=== PATIENT | female | born 1950 ===

== ENCOUNTER 2016-08-20 07:04 | Day surgery (SDC) | payer MEDICARE, OTHER ==
[2016-08-20 07:48] VITALS: BMI 24.7
[2016-08-20] MEDS ORDERED: Propofol 10 mg/ml Inj (20 ML) ONE (10:05)
[2016-08-20] MEDS ORDERED: Lidocaine Hydrochloride 5 ML INJ ONE (10:05)
[2016-08-20] MEDS ORDERED: Atropine Sulfate 0.4 mg/ml (0.8mg/2ml) Syringe IV ONE (10:13)
[2016-08-20] MEDS ORDERED: Lactated Ringer's 500 ML IV SCH (10:15)
[2016-08-20 10:39] VITALS: O2SAT 100
[2016-08-20 11:34] VITALS: BP 116/59; PULSE 76; RESP 16; TEMP 97
== END 2016-08-20 11:20 | disposition home or self-care (01) ==
LOC: C.ENDO 07:04
PROVIDERS: ATTEND Internal Medicine Gastroenterology
DX: D12.2 Benign neoplasm of ascending colon (principal); K64.8 Other hemorrhoids
CPT/HCPCS: 45378; 88305; J2704; J7120

== ENCOUNTER 2017-03-03 07:16 | Day surgery (SDC) | payer MEDICARE, OTHER ==
[2017-03-03 07:54] VITALS: BMI 24.5
[2017-03-03 08:23] VITALS: TEMP 97; O2SAT 100
[2017-03-03] MEDS ORDERED: Lactated Ringer's 1,000 ML IV ONE (09:15)
[2017-03-03] MEDS ORDERED: Propofol 10 mg/ml Inj (20 ML) ONE ×2 (09:18→09:40)
[2017-03-03] MEDS ORDERED: Lidocaine Hydrochloride 5 ML INJ ONE (09:18)
[2017-03-03 14:00] VITALS: RESP 15
[2017-03-03 14:10] VITALS: BP 132/78; PULSE 66
== END 2017-03-03 11:30 | disposition home or self-care (01) ==
LOC: C.ENDO 07:16
PROVIDERS: ATTEND Internal Medicine Gastroenterology
DX: K31.7 Polyp of stomach and duodenum (principal); K29.60 Other gastritis without bleeding; K44.9 Diaphragmatic hernia without obstruction or gangrene
CPT/HCPCS: 43270; 88305; 88342; J2704; J7120

== ENCOUNTER 2017-09-15 12:28 | Emergency (ER) | payer MEDICARE, OTHER ==
[2017-09-15 12:28] VITALS: BMI 24.5
[2017-09-15 12:45] VITALS: BP 141/84; PULSE 72; RESP 18; TEMP 98.1; O2SAT 97
[2017-09-15] MEDS ORDERED: Lidocaine 5% Patch TD STA (13:05)
--- NOTE | 2017-09-15 13:06 | C.PDOC ---
History Of Present Illness 67 y/o female with history of chronic back pain presents to ED with c/o low back pain worse on left side for 1 week. Patient has taken tylenol with no relief and denies dysuria, hematuria, bowel/bladder incontinence, vomiting or diarrhea. Time Seen by Provider: 09/15/17 12:42 Chief Complaint (Nursing): Back Pain History Per: Patient History/Exam Limitations: no limitations Onset/Duration Of Symptoms: Days Current Symptoms Are (Timing): Still Present Quality Of Discomfort: "Pain" Past Medical History Reviewed: Historical Data, Nursing Documentation, Vital Signs Vital Signs: Last Vital Signs Temp 98.1 F 09/15/17 12:39 Pulse 72 09/15/17 12:39 Resp 18 09/15/17 12:39 BP 141/84 09/15/17 12:39 Pulse Ox 97 09/15/17 15:10 - Medical History PMH: Colonic Polyps (ADENOMATOUS), HTN Surgical History: No Surg Hx Family History: States: No Known Family Hx - Social History Hx Alcohol Use: No Hx Substance Use: No - Immunization History Hx Tetanus Toxoid Vaccination: No Hx Influenza Vaccination: No Hx Pneumococcal Vaccination: No Review Of Systems Constitutional: Negative for: Fever, Chills Gastrointestinal: Negative for: Nausea, Vomiting, Abdominal Pain Genitourinary: Negative for: Dysuria, Hematuria Musculoskeletal: Positive for: Back Pain Neurological: Negative for: Weakness, Numbness Physical Exam - Physical Exam Appears: Non-toxic, No Acute Distress Skin: Warm, Dry, No Rash Head: Atraumatic, Normacephalic Eye(s): bilateral: Normal Inspection Oral Mucosa: Moist Neck: Normal ROM, Supple Cardiovascular: Rhythm Regular Respiratory: Normal Breath Sounds, No Rales, No Rhonchi, No Wheezing Gastrointestinal/Abdominal: Soft, No Tenderness, No Guarding, No Rebound Back: Normal Inspection (no rash), No CVA Tenderness, No Vertebral Tenderness, Other (paralumbar tenderness) Extremity: Bilateral: Atraumatic, Normal Color And Temperature, Normal ROM Neurological/Psych: Oriented x3, Normal Speech, Normal Motor, Normal Sensation ED Course And Treatment O2 Sat by Pulse Oximetry: 97 (RA) Pulse Ox Interpretation: Normal Medical Decision Making Medical Decision Making: Impression: Back pain Plan: * Toradol * Lidoderm patch * UA Reassess UA was negative. On reassessment, patient is resting comfortably, with improvement of back pain. Patient remains afebrile, with no bony tenderness, extremity numbness or weakness, or abdominal pain. Patient is ambulatory in the emergency department with no signs of discomfort. Patient was advised to follow up with physician/ clinic in 1-2 days. Disposition Counseled Patient/Family Regarding: Diagnosis, Need For Followup, Rx Given - Disposition Referrals: Shaik Roman MD [Staff Provider] - Disposition: HOME/ ROUTINE Disposition Time: 14:22 Condition: GOOD Additional Instructions: Vaya a [place] mdico o la clnica en 2-5 younger sin falta, para mas evaluacin. [place] los medicamentos abdelrahman indicado. Volver a la christine de emergencia en cualquier momento si los sntomas persisten o empeoran. 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 - Scribe Statement The provider has reviewed the documentation as recorded by the Jeffry Rubio All medical record entries made by the Kirbyibpj were at my direction and personally dictated by me. I have reviewed the chart and agree that the record accurately reflects my personal performance of the history, physical exam, medical decision making, and the department course for this patient. I have also personally directed, reviewed, and agree with the discharge instructions and disposition.
[2017-09-15] MEDS ORDERED: Lidocaine 5% Patch TD ONE (13:11)
[2017-09-15 13:24] LABS: SQUAMOUS EPITHIAL < 1 /hpf (0-5); URINE BILIRUBIN NEGATIVE (NEGATIVE); URINE BLOOD NEGATIVE (NEGATIVE); URINE CLARITY Clear (Clear); URINE COLOR Yellow (YELLOW); URINE GLUCOSE (UA) NORMAL (Normal); URINE LEUKOCYTE ESTERASE NEG Leu/uL (Negative); URINE PROTEIN NEGATIVE (NEGATIVE)
--- NOTE | 2017-09-17 12:29 | CARD ---
APPROVED REPORT Date of service: 09/15/2017 EKG Measurement Heart [id number] <Conclusion> Sinus bradycardia Possible Left atrial enlargement Borderline ECG
== END 2017-09-15 14:30 | disposition home or self-care (01) ==
LOC: C.ER 12:28
DX: M54.5 Low back pain (principal)
CPT/HCPCS: 81001; 93005; 96372; 99283; J1885

== ENCOUNTER 2017-10-16 13:38 | Emergency (ER) | payer MEDICARE, OTHER ==
[2017-10-16 13:41] VITALS: BMI 22.8
[2017-10-16 13:44] VITALS: TEMP 98
[2017-10-16] MEDS ORDERED: Lidocaine 5% Patch TD STA (14:03)
--- NOTE | 2017-10-16 14:08 | C.PDOC ---
History Of Present Illness Pt is a 67 yr old female who is c/o low back pain for 4 or 5 months. Patient went to her PMD on Wednesday for a re-evaluation of her back pain and he reviewed xrays that were taken recently and told the patient that she has arthritis. The pt states that she received a prescription for Trazodone. Pt also states that she has intermittent suprapubic pain and dysuria (and sometimes with odor in her urine). No fever. No additional complaints at this time. PMD: Dr. Roberson / Time Seen by Provider: 10/16/17 13:46 Chief Complaint (Nursing): Back Pain History Per: Patient Past Medical History Reviewed: Historical Data, Nursing Documentation, Vital Signs Vital Signs: Last Vital Signs Temp 98 F 10/16/17 13:41 Pulse 78 10/16/17 14:41 Resp 16 10/16/17 14:41 BP 129/81 10/16/17 14:41 Pulse Ox 98 10/16/17 14:41 - Medical History PMH: Colonic Polyps (ADENOMATOUS), HTN Other PMH: Back pain Family History: States: No Known Family Hx - Social History Hx Tobacco Use: No Hx Alcohol Use: No Hx Substance Use: No - Immunization History Hx Tetanus Toxoid Vaccination: No Hx Influenza Vaccination: No Hx Pneumococcal Vaccination: No Review Of Systems Except As Marked, All Systems Reviewed And Found Negative. Constitutional: Negative for: Fever Cardiovascular: Negative for: Chest Pain Respiratory: Negative for: Shortness of Breath Genitourinary: Positive for: Dysuria, Other (suprapubic pain) Musculoskeletal: Positive for: Back Pain Physical Exam - Physical Exam Appears: Well, Non-toxic, No Acute Distress Skin: Normal Color, Warm, Dry Ear(s): Bilateral: Normal Nose: Normal Tongue: Normal Appearing Lips: Normal Appearing Neck: Normal Cardiovascular: Rhythm Regular Respiratory: Normal Breath Sounds Gastrointestinal/Abdominal: Soft, Tenderness (mild suprapubic tenderness) Back: Other (mild tenderness to lower thoracic spine) Extremity: Bilateral: Atraumatic, Normal ROM Pulses: Left Radial: Normal, Right Radial: Normal ED Course And Treatment O2 Sat by Pulse Oximetry: 100 Medical Decision Making Medical Decision Making: Initial Impression: Back pain--arthritis in nature r/o UTI Initial Plan: Will check UA Progress note: Pt feels better after being medicated. Will d/c home. Disposition Counseled Patient/Family Regarding: Studies Performed, Diagnosis, Need For Followup - Disposition Referrals: Shaik Roman MD [Staff Provider] - Disposition: HOME/ ROUTINE Disposition Time: 14:28 Condition: STABLE Additional Instructions: Ms. Blanco, thank you for letting us take care of you today. Return to the ER if your symptoms worsen, or if any problems. Follow up with Dr. Cuevas in 4-5 days for a re-evaluation. Take the medication listed below as prescribed. Prescriptions: Lidocaine 5% [Lidoderm] 1 ea TD Q12 PRN #14 patch PRN Reason: Pain, Moderate (4-7) Methylprednisolone [Medrol Dose Pack (21 tabs)] 4 mg PO DAILY #21 mg Instructions: Low Back Pain (DC), Osteoarthritis (DC) Print Language: MALAY - POA Present On Arrival: None - Clinical Impression Clinical Impression: Arthritis, Back pain
[2017-10-16] MEDS ORDERED: Lidocaine 5% Patch TD ONE (14:09)
[2017-10-16 14:10] LABS: SQUAMOUS EPITHIAL 1 /hpf (0-5); URINE BILIRUBIN NEGATIVE (NEGATIVE); URINE BLOOD 1+ (NEGATIVE); URINE CLARITY Clear (Clear); URINE COLOR Yellow (YELLOW); URINE GLUCOSE (UA) NORMAL (Normal); URINE LEUKOCYTE ESTERASE NEG Leu/uL (Negative); URINE PROTEIN NEGATIVE (NEGATIVE); URINE UROBILINOGEN NORMAL mg/dL (0.2-1.0)
[2017-10-16 14:42] VITALS: BP 129/81; PULSE 78; RESP 16
[2017-10-16 15:48] VITALS: O2SAT 100
== END 2017-10-16 14:41 | disposition home or self-care (01) ==
LOC: C.ER 13:38
DX: M54.5 Low back pain (principal); M19.90 Unspecified osteoarthritis, unspecified site; I10 Essential (primary) hypertension
CPT/HCPCS: 81001; 87086; 96372; 99283; J1885

== ENCOUNTER 2018-05-12 07:21 | Day surgery (SDC) | payer MEDICARE, OTHER ==
[2018-05-12 07:42] VITALS: BMI 23.3
[2018-05-12 07:47] VITALS: PULSE 54; RESP 18; TEMP 97.5; O2SAT 100
--- NOTE | 2018-05-12 08:29 | CP.SDSHP ---
Same Day Surgery H & P - History Proposed Procedure: EGD Pre-Op Diagnosis: atrophic gastritis - Allergies Allergies: Allergies No Known Allergies Allergy (Verified 10/16/17 13:40) - Physical Exam General Appearance: NAD Vital Signs: Vital Signs 05/12/18 07:42 Temperature 97.5 F L Pulse Rate 54 L Respiratory 18 Rate Blood Pressure 141/75 O2 Sat by Pulse 100 Oximetry Mental Status: Alert & Oriented x3 Neuro: WNL Heart: WNL Lungs: WNL GI: WNL - {Optional Preform as Required} Abdomen: WNL - Impression Pt. Evaluated Today:Candidate for Anesthesia & Procedure: Yes - Date & Time Date: 05/12/18 Time: 08:28 Short Stay Discharge - Short Stay Discharge Admitting Diagnosis/Reason for Visit: ATROPHIC GASTRITIS Disposition: HOME/ ROUTINE
[2018-05-12] MEDS ORDERED: Propofol 10 mg/ml Inj (20 ML) ONE (08:31)
[2018-05-12] MEDS ORDERED: Midazolam 2 MG/2 ML VIAL ONE (08:31)
[2018-05-12 09:41] VITALS: BP 123/67
== END 2018-05-12 09:43 | disposition home or self-care (01) ==
LOC: C.ENDO 07:21
PROVIDERS: ATTEND Internal Medicine Gastroenterology
DX: K29.40 Chronic atrophic gastritis without bleeding (principal)
CPT/HCPCS: 43239; 88305; 88342; J2001; J2250; J2704

== ENCOUNTER 2018-06-07 11:55 | Outpatient (CLI) | payer MEDICARE, OTHER | END 2018-06-07 11:56 | disposition home or self-care (01) | LOC: C.MAMMO 11:55 | DX: Z12.31 Encounter for screening mammogram for malignant neoplasm of breast (principal) ==

== ENCOUNTER 2018-06-29 14:24 | Emergency (ER) | payer MEDICARE, OTHER ==
[2018-06-29 14:24] VITALS: BMI 23.3
[2018-06-29 14:28] VITALS: RESP 20
--- NOTE | 2018-06-29 15:28 | C.PDOC ---
History Of Present Illness Patient is a 67 yo F with PMH HTN, dementia, depression, gastritis, chronic back pain comes in today for bilateral ankle swelling and R leg pain. She noticed her R ankle starting to swell last night with her varicose veins w orsening. When she woke up this morning, there was a 4 square inch bruise on the medial upper leg 2 inch distal to the knee with swelling extending up to knee. She also noticed her L ankle starting to swell, which prompted her to come into the hospital. The bruised area of the leg is painful when bending and moving her knee, including walking and prefers not to weight bear. On manipulation, admits to tingling at site of bruise. Denies trauma, chest pain, palpitations, shortness of breath, abdominal pain. <Marycruz Prabhakar - Last Filed: 06/29/18 17:08> Patient seen and examined by me. Agree iwth history as reported. PE significant for small ecchymotic area with underlying nodular sclerosed superficial vein on medial anterior right proximal tibia, mildly tender. Right leg mildly swollen. <Samantha Aleman - Last Filed: 06/29/18 17:30> History Per: Patient Onset/Duration Of Symptoms: Hrs Current Symptoms Are (Timing): Worse Pain Scale Rating Of: 5 - Knee Description Of Injury: denies: Fell Currently Unable To: Bear Weight <Marycruz Prabhakar - Last Filed: 06/29/18 17:08> <Samantha Aleman - Last Filed: 06/29/18 17:30> Chief Complaint (Nursing): Lower Extremity Problem/Injury Past Medical History Reviewed: Historical Data, Nursing Documentation, Vital Signs Vital Signs: Last Vital Signs Temp 98.1 F 06/29/18 14:26 Pulse 66 06/29/18 14:26 Resp 20 06/29/18 14:26 BP 150/78 06/29/18 14:26 Pulse Ox 98 06/29/18 14:26 - Medical History PMH: Colonic Polyps (ADENOMATOUS), HTN Denies: Fractures, Chronic Kidney Disease, Sleep Apnea, TIA Surgical History: Endoscopy Family History: States: Unknown Family Hx - Social History Hx Tobacco Use: No Hx Alcohol Use: No Hx Substance Use: No - Immunization History Hx Tetanus Toxoid Vaccination: No Hx Influenza Vaccination: No Hx Pneumococcal Vaccination: No <Marycruz Prabhakar - Last Filed: 06/29/18 17:08> Vital Signs: Last Vital Signs Temp 98.1 F 06/29/18 14:26 Pulse 66 06/29/18 14:26 Resp 20 06/29/18 14:26 BP 150/78 06/29/18 14:26 Pulse Ox 98 06/29/18 17:18 <Samantha Aleman - Last Filed: 06/29/18 17:30> Review Of Systems Constitutional: Negative for: Fever, Chills, Sweats, Weakness, Malaise Cardiovascular: Positive for: Edema. Negative for: Chest Pain, Palpitations, Light Headedness Respiratory: Negative for: Cough, Shortness of Breath, Wheezing Gastrointestinal: Negative for: Nausea, Vomiting, Abdominal Pain, Diarrhea, Constipation Genitourinary: Negative for: Dysuria, Frequency, Incontinence Skin: Positive for: Bruising, Other (worsening varicose veins). Negative for: Rash Neurological: Positive for: Numbness. Negative for: Weakness Psych: Negative for: Anxiety, Depression <Marycruz Prabhakar - Last Filed: 06/29/18 17:08> Physical Exam - Physical Exam Appears: Well, No Acute Distress Skin: Warm, No Diaphoretic, No Mottled, Ecchymosis (4 square inch blue/purple bruise on medial R leg), Other (varicose veins on bilateral legs) Head: Atraumatic, Normacephalic Eye(s): bilateral: PERRL, EOMI Cardiovascular: Rhythm Regular, Edema, No Murmur Respiratory: Normal Breath Sounds, No Rales, No Rhonchi, No Stridor Gastrointestinal/Abdominal: Normal Exam, Bowel Sounds, Soft, No Tenderness, No Distention, No Guarding Back: No CVA Tenderness, Paraspinal Tenderness (chronic back pain) Extremity: No Normal ROM (R sided weakness), Tenderness, Pedal Edema, No Calf Tenderness, Capillary Refill (< 2 sec), Swelling Extremity: Left: Hips Non-Tender, Right: Limited ROM To Joint (R hip and R knee limited to pain), Painful To Bear Weight, Unable To Bear Weight (secondary to pain), Bilateral: Normal Color And Temperature Pulses: Left Radial: Normal, Right Radial: Normal, Left Dorsalis Pedis: Normal, Right Dorsalis Pedis: Normal (pulses intact) DTR: Bicep (R): 2+, Bicep (L): 2+, Knee (R): 2+, Knee (L): 2+, Ankle (L): 2+ Neurological/Psych: Oriented x3, Normal Speech, Normal Cognition <Marycruz Prabhakar - Last Filed: 06/29/18 17:08> ED Course And Treatment - Laboratory Results Result Diagrams: 06/29/18 16:39 06/29/18 16:39 O2 Sat by Pulse Oximetry: 98 <Marycruz Prabhakar - Last Filed: 06/29/18 17:08> - Laboratory Results Result Diagrams: 06/29/18 16:39 06/29/18 16:39 Lab Results: Total Bilirubin 0.5 mg/dL (0.2-1.3) 06/29/18 16:39 AST 28 U/L (14-36) 06/29/18 16:39 ALT 11 U/L (9-52) 06/29/18 16:39 Alkaline Phosphatase 56 U/L (38-126) 06/29/18 16:39 Total Protein 6.3 g/dL (6.3-8.3) 06/29/18 16:39 Albumin 3.8 g/dL (3.5-5.0) 06/29/18 16:39 Globulin 2.6 gm/dL (2.2-3.9) 06/29/18 16:39 Albumin/Globulin Ratio 1.5 (1.0-2.1) 06/29/18 16:39 <Samantha Aleman - Last Filed: 06/29/18 17:30> Medical Decision Making Medical Decision Making: - labs - bilateral venous Dopplers: negative - XR Tib/Fib R: no acute Fx <Marycruz Prabhakar - Last Filed: 06/29/18 17:08> Disposition - Disposition Disposition Time: 17:14 <Marycruz Prabhakar - Last Filed: 06/29/18 17:08> <Samantha Aleman - Last Filed: 06/29/18 17:30> - Disposition Disposition: HOME/ ROUTINE Condition: GOOD Additional Instructions: Make an appointment with your PMD and local bulk driver to follow up the ankle edema. Keep your legs elevated while at rest, and get compression stockings, which will help with the swelling. 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 /DO has examined the patient and agrees with the treatment plan. <Marycruz Prabhakar - Last Filed: 06/29/18 17:08>
--- NOTE | 2018-06-29 16:08 | RAD ---
Date of service: 06/29/2018 PROCEDURE: Radiographs of the right tibia and fibula. HISTORY: swelling, bruise COMPARISON: None available TECHNIQUE: Frontal and lateral views obtained. 2 views obtained. FINDINGS: BONES: Bone alignment and mineralization are normal. There is no acute displaced fracture or bone destruction. JOINT SPACES: Unremarkable. OTHER FINDINGS: None. IMPRESSION: No acute fracture.
[2018-06-29 16:42] LABS: BASO % 0.8 % (0.0-2.0); EOS # 0.1 K/uL (0.0-0.7); EOS % 2.5 % (0.0-4.0); HEMOGLOBIN 10.8 g/dL (11.0-16.0); LYMPH # 1.3 K/uL (1.0-4.3); LYMPH % 34.3 % (20.0-40.0); MEAN CORPUSCULAR HEMOGLOBIN 31.2 pg (27.0-31.0); MEAN CORPUSCULAR HGB CONC 32.9 g/dL (33.0-37.0); MEAN PLATELET VOLUME 10.2 fL (7.2-11.7); MONO # 0.3 K/uL (0.0-0.8); MONO % 7.1 % (0.0-10.0); NEUT # 2.2 K/uL (1.8-7.0); NEUT % 55.3 % (50.0-75.0); NRBC % 0.2 % (0.0-2.0); RBC 3.46 Mil/uL (3.80-5.20); RED CELL DISTRIBUTION WIDTH 13.9 % (11.5-14.5); WHITE BLOOD COUNT 3.9 K/uL (4.8-10.8)
[2018-06-29 16:55] LABS: ALB/GLOB RATIO 1.5 (1.0-2.1); ALBUMIN 3.8 g/dL (3.5-5.0); ALT/SGPT 11 U/L (9-52); AST/SGOT 28 U/L (14-36); BLOOD UREA NITROGEN 14 mg/dL (7-17); CALCIUM 9.2 mg/dl (8.6-10.4); GFR NON-AFRICAN AMERICAN > 60
[2018-06-29 17:47] VITALS: BP 149/88; PULSE 84; TEMP 97.9; O2SAT 96
--- NOTE | 2018-07-01 11:07 | VASCLAB ---
Date of service: 06/29/2018 PROCEDURE: Lower Extremity Venous Duplex Exam. HISTORY: bilateral ankle edema PRIORS: None. TECHNIQUE: Bilateral common femoral, femoral, popliteal and posterior tibial, peroneal and great saphenous veins were evaluated. Flow was assessed with color Doppler, compressibility, assessment of phasic flow and augmentation response. Report prepared by ARIELLA Barger FINDINGS: RIGHT: 1. Common Femoral Vein: 1.1. Compressibility - Fully compressible: Thrombus - None : Flow - Phasic: Augmentation -Normal: Reflux - None. 2. Femoral Vein: 2.1. Compressibility - Fully compressible: Thrombus - None : Flow - Phasic: Augmentation -Normal: Reflux - None. 3. Popliteal Vein: 3.1. Compressibility - Fully compressible: Thrombus - None : Flow - Phasic: Augmentation -Normal: Reflux - None. 4. Posterior Tibial Vein: 4.1. Compressibility - Fully compressible: Thrombus - None: Flow - Phasic: Augmentation -Normal: Reflux - None. 5. Peroneal Vein: 5.1. Compressibility - Fully compressible: Thrombus - None: Flow - Phasic: Augmentation -Normal: Reflux - None. 6. Great Saphenous Vein: 6.1. Compressibility - Fully compressible: Thrombus - None: Flow - Phasic: Augmentation - Normal: Reflux - None. LEFT: 1. Common Femoral Vein: 1.1. Compressibility - Fully compressible: Thrombus - None: Flow - Phasic: Augmentation -Normal: Reflux - None. 2. Femoral Vein: 2.1. Compressibility - Fully compressible: Thrombus - None: Flow - Phasic: Augmentation -Normal: Reflux - None. 3. Popliteal Vein: 3.1. Compressibility - Fully compressible: Thrombus - None : Flow - Phasic: Augmentation -Normal: Reflux - None. 4. Posterior Tibial Vein: 4.1. Compressibility - Fully compressible: Thrombus - None: Flow - Phasic: Augmentation -Normal: Reflux - None. 5. Peroneal Vein: 5.1. Compressibility - Fully compressible: Thrombus - None: Flow - Phasic: Augmentation -Normal: Reflux - None. 6. Great Saphenous Vein: 6.1. Compressibility - Fully compressible: Thrombus - None: Flow - Phasic: Augmentation - Normal: Reflux - None. OTHER FINDINGS: Right: Wall thickening noted of the right great saphenous vein. IMPRESSION: Right: No evidence of deep or superficial vein thrombosis of the right lower extremity. Normal valve function noted of the right side. Left: No evidence of deep or superficial vein thrombosis of the left lower extremity. Normal valve function noted of the left side.
== END 2018-06-29 17:46 | disposition home or self-care (01) ==
LOC: C.ER 14:24
DX: I80.01 Phlebitis and thrombophlebitis of superficial vessels of right lower extremity (principal)